=== PATIENT | male | born 1975 | race Caucasian/White ===

== ENCOUNTER 2023-10-18 10:29 | Day surgery (SDC) | payer BC, SELFPAY ==
[2023-10-18] VITALS (16 sets, daily range): BP systolic 125–164; BP diastolic 85–116; PULSE 78–87; RESP 14–18; TEMP 36.5–37.4; O2SAT 92–98; BMI 39.7
[2023-10-18] MEDS: LACTATED RINGERS 1000 ML 1,000 ML 100 ML IV (10:40)
[2023-10-18] MEDS: SODIUM CHLORIDE 0.9 % (FLUSH) 10 ML SYRINGE IVF (10:40)
[2023-10-18] MEDS: CEFAZOLIN 2 GM INJ IVP (11:42)
--- NOTE | 2023-10-18 13:31 | W.ANESCHARGE ---
Anesthesia Charges Start Date/Time Anesthesia Start Date: 10/18/23 Anesthesia Start Time: 11:25 Stop Date/Time Anesthesia Stop Date: 10/18/23 Anesthesia Stop Time: 14:50
[2023-10-18] MEDS: ACETAMINOPHEN 325 MG TABLET 650 MG PO (14:27)
[2023-10-18] MEDS: BUPIVACAINE 0.25% 30 ML INJECTION (14:27)
--- NOTE | 2023-10-18 14:43 | P.GSOP_ITS ---
Operative Note Date of procedure: 10/18/23 Pre-op diagnosis: 1. Umbilical hernia 2. Recurrent left inguinal hernia Post-op diagnosis: Same Type of Procedure: 1. Laparoscopic converted to open recurrent left inguinal hernia repair 2. Open 2 cm umbilical hernia repair mesh Indications: The patient is a 48-year-old male with a recent history of umbilical hernia. This has become increasingly symptomatic for him. He also noted left groin pain. Previous workup a few years ago did not reveal hernia, however on my exam in the office, he did have a left inguinal hernia present with Valsalva. We discussed options and he elected to proceed with repair. Because he had a prior open left inguinal scar, I advised him to proceed with a laparoscopic repair, with open umbilical hernia repair. Procedure Description: After discussing the risks and benefits of the procedure, the patient signed informed consent.? The operative site was marked and the patient was brought to the operating room and placed on the operating table in supine position.? Care was taken to pad the patient's pressure points.?? The patient was then intubated by anesthesia.?? The operative site was then prepped and draped in the usual sterile fashion.? A time-out was then performed. A curvilinear incision was made below the umbilicus. Dissection was carried down to subcutaneous tissue until the anterior rectus fascia was encountered. The patient's moderate-sized fat containing umbilical hernia was retracted away from the area of dissection. The fascia was incised off the midline. The rectus muscle fibers were then retracted exposing the posterior fascia. A port with a dissecting balloon was then introduced into the pre-preperitoneal space. This was inflated under direct vision. The balloon was deflated, removed, and a 10 mm working port was placed. The patient was placed in slight Trendelenburg positi on. The space was insufflated and a 10 mm 30-degree scope was then advanced into the space. Two 5 mm ports were placed in the midline under direct vision. Dissection began on the left side. The epigastric vessels were visible and the pubic bone was exposed medially. There did not appear to be a direct hernia. The peritoneum was densely adherent to the anterior abdominal wall lateral to the epigastric vessels. I attempted to dissect the peritoneum down and the peritoneum tore. I visualized mesh from the prior repair in the approximate area of the internal ring. I took my dissection superior to this and dissected laterally. I continued to attempt to dissect the peritoneum free, however it was densely adherent to what appeared to be a rather large piece of mesh in the preperitoneal space - this was partially visible looking through the hole in the peritoneum. At this point, I elected to look trans abdominally through the patient's umbilical hernia, however if there really was a large piece of mesh preperitoneally then I would plan on repeat open repair. I removed the balloon port and began dissecting the hernia sac free from the umbilicus. Once this was free, the hernia sac was entered. A large amount of omental fat was present. I was able to partially reduce some of this, however full reduction necessitated dividing and discarding piece of the omentum which would not reduce. Once this was reduced the fascial edges were grasped. Through this a balloon port was placed. The abdomen was then insufflated. I then replaced my 5 mm ports in the abdomen this time going through the peritoneum. The patient was placed in Trendelenburg and his small bowel was gently moved from the pelvis. I was able to visualize the area of the left inguinal hernia. Again there was a moderate sized piece of mesh and the sigmoid colon and surrounding fat was stuck to this area. Given this finding, I elected to proceed with open repair. First however, the ports were removed and the abdomen was desufflated. I removed the remaining hernia sac and created a preperitoneal pocket around the umbilicus. Umbilical defect measured approximately 2 cm. Because of this I elected to place a piece of mesh. A piece of 6 cm Ventralex mesh was then obtained. This was placed in the preperitoneal space. This was secured in place with 2 0 PDS suture at 4 points. The tails were then removed and the opening was closed with 0 Vicryl. I then reapproximated the umbilicus to the fascia and the skin was closed with 3-0 Vicryl dermal 4-0 Monocryl running subcuticular suture. The port sites were closed with 4-0 Monocryl suture. Glue was then applied. Attention was then turned to the left groin. Again there appeared to be an incision there, which was somewhat higher and more lateral. I marked out an oblique incision between the anterior superior iliac spine and the pubic bone. I then made an incision and took my dissection down into the subcutaneous fat. There was scar tissue noted here indicating likely prior repair. The external oblique fascia was encountered. This was incised using a 15 blade. I then used a Metzenbaum scissors to divide the external oblique down to the external ring. I took care to cut only the fascia, to avoid dividing the ileoinguinal nerve. This was eventually identified and spared. Once this was done, I cleared the edges of the external oblique and retracted them using a wheatlander. I identified the spermatic cord and dissected this free, looping it with a Keyanna for retraction. There was no direct hernia noted. There was a large cord lipoma adherent to the cord. This was dissected free using a combination of cautery and blunt dissection. The cord structures were examined. There was no hernia sac noted. Hemostatic fibers were divided during this dissection. Hemostasis was achieved with cautery. Once this was done, the preperitoneal fat which had herniated from the internal ring was carefully dissected ensuring no bowel or other structures were contained within. This was clamped and ligated before dividing. This fat was discarded. I oversewed the area of herniated fat inferior to the internal ring with 3-0 Vicryl to keep the intra-abdominal fat from herniating during the placement of mesh. I then obtained a piece of Bard soft mesh and trimmed it to size. This was secured to the pubic tubercle medially and, using 2-0 Prolene suture circumferentially sewn to the inguinal ligament inferiorly and transversus abdominis superiorly. The tails were secured around the spermatic cord to recreate a new internal ring. This opening was just big enough to permit my finger. Once this was done the external oblique fascia was reapproximated using 2-0 Vicryl. The ilioinguinal nerve was identified and preserved both during the mesh placement and the closing of the external oblique fascia. Once this was done Black's fascia was closed with 3-0 Vicryl. The wound was then closed with 3-0 Vicryl dermal 4-0 Monocryl running subcuticular suture. Glue was then applied. The scrotum was examined to ensure that both testicles were down. Instrument sponge and needle counts were correct at the end of the case. ? The patient was then woken and transported to the recovery area in stable condition. ? The patient tolerated the procedure well. Findings: 1. 2 cm umbilical hernia containing incarcerated intra-abdominal fat 2. Recurrent direct inguinal hernia, prior open preperitoneal repair. Anesthesia: GETA Surgeon: Lianna Kapadia MD Estimated blood loss (mL): 15 Condition: stable Disposition: PACU
--- NOTE | 2023-10-18 14:53 | W.ANESCHARGE ---
Anesthesia Charges Start Date/Time Anesthesia Start Date: 10/18/23 Anesthesia Start Time: 11:25 Stop Date/Time Anesthesia Stop Date: 10/18/23 Anesthesia Stop Time: 14:50
[2023-10-18] MEDS: fentaNYL 100 MCG/2 ML inj 50 MCG IVP ×2 (15:08→15:20)
[2023-10-18] MEDS: hydrOXYzine pamoate 25 MG CAPSULE PO (16:27)
== END 2023-10-18 17:05 | disposition home or self-care (01) ==
LOC: OR 10:30
PROVIDERS: PCP Student in an Organized Health Care Education/Training Program; Visit Provider Surgery
PROC: (CPT 49650; principal; 2023-10-18 11:45)
DX: K42.9 Umbilical hernia without obstruction or gangrene (principal); K40.91 Unilateral inguinal hernia, without obstruction or gangrene, recurrent; Z53.31 Laparoscopic surgical procedure converted to open procedure
CPT/HCPCS: 49591; 49520; 00790; 00830; 00860; A9270; C1781; J0330; J0665; J0690; J1100; J1170; J2371; J2405; J2704; J3010; J3490; J7120